=== PATIENT | female | born 1930 | race Caucasian/White ===

== ENCOUNTER 2017-07-27 16:18 | Observation (INO) | payer MEDICARE ==
[~2017-07-27] VITALS: Ht 167.6 cm; Wt 72.2 kg
[2017-07-27] MEDS ORDERED: LISINOPRIL 5 MG TABLET ONE (16:48)
[2017-07-27] MEDS ORDERED: NITROGLYCERIN 1GM/1 INCH PACKET TD ONE (16:49)
[2017-07-27] MEDS ORDERED: METOPROLOL TARTRATE 25 MG TAB ONE (16:50)
[2017-07-27] MEDS ORDERED: ONDANSETRON HCL 4 MG/2 ML VIAL ONE (16:50)
[2017-07-27 16:51] LABS: BASOPHILS % (AUTO) 0.5 % (0.0-5.0); HEMATOCRIT 41.7 % (36-48); LYMPHOCYTES % (AUTO) 30.6 % (21.0-51.0); MEAN CORPUSCULAR HEMOGLOBIN 29.6 pg (27.0-33.0); MEAN CORPUSCULAR HGB CONC 33.7 g/dL (32.0-36.0); MEAN CORPUSCULAR VOLUME 87.8 fL (79-99); MONOCYTES % (AUTO) 7.6 % (3.0-13.0); NEUTROPHILS % (AUTO) 60.3 % (40.0-77.0); PLATELET COUNT (AUTO) 221 K/uL (130-400); RED BLOOD CELL COUNT(AUTO) 4.75 MIL/uL (4.00-5.50); WHITE BLOOD COUNT (AUTO) 8.5 K/uL (4.8-10.8)
[2017-07-27 17:02] LABS: CREATININE 0.9 mg/dL (0.5-1.5); POTASSIUM 3.8 mmol/L (3.5-5.1)
[2017-07-27 17:17] LABS: CREATINE KINASE MB 1.1 ng/mL (0.5-3.6)
[2017-07-28] VITALS (7 sets, daily range): BP systolic 116–146; BP diastolic 59–73
[2017-07-28] MEDS ORDERED: INSLAN SQ (05:14)
[2017-07-28] MEDS ORDERED: NITROGLYCERIN 0.4 MG SL TAB SL ONE (05:49)
[2017-07-28 05:52] LABS: HEMATOCRIT 37.8 % (36-48); MEAN CORPUSCULAR HEMOGLOBIN 29.9 pg (27.0-33.0); MEAN CORPUSCULAR HGB CONC 34.2 g/dL (32.0-36.0); MEAN CORPUSCULAR VOLUME 87.5 fL (79-99); PLATELET COUNT (AUTO) 209 K/uL (130-400); RED BLOOD CELL COUNT(AUTO) 4.32 MIL/uL (4.00-5.50); RED CELL DISTRIBUTION WIDTH 13.9 % (11.0-15.5); WHITE BLOOD COUNT (AUTO) 7.4 K/uL (4.8-10.8)
[2017-07-28] MEDS: NITROGLYCERIN 1GM/1 INCH PACKET TD SCH ×3 (05:52→21:03)
[2017-07-28 05:54] LABS: BAND NEUTROPHILS % (MANUAL) 2 % (0-2); LYMPHOCYTES % (MANUAL) 42 % (22-44); MAN.DIFF COMMENT-IMPRESSION MANUAL DIFFERENTIAL; MONOCYTES % (MANUAL) 4 % (2-9); PLATELET MORPHOLOGY COMMENT ADEQUATE; SEGMENTED NEUTROPHILS % 52 % (40-70)
[2017-07-28 06:02] LABS: MAGNESIUM 1.9 mg/dL (1.80-2.40); POTASSIUM 3.7 mmol/L (3.5-5.1)
[2017-07-28] MEDS ORDERED: GLUCAGON 1MG KIT 1 MG ML IM PRN (06:30)
[2017-07-28] MEDS ORDERED: DEXTROSE 50%-WATER 50 ML DISP.SYRIN IV PRN (06:30)
[2017-07-28] MEDS ORDERED: ACETAMINOPHEN 325 MG TAB PO PRN (06:30)
[2017-07-28] MEDS: METOPROLOL TARTRATE 25 MG TAB PO SCH ×2 (08:24→20:57)
[2017-07-28] MEDS: ASPIRIN 325MG EC TAB 325 MG TABLET.DR PO SCH (08:24)
[2017-07-28] MEDS: LISINOPRIL 20 MG TABLET PO SCH (08:25)
[2017-07-28] MEDS ORDERED: REGADENOSON 0.4 MG/5 ML PF SYG IVP SCH (08:30)
[2017-07-28 09:12] LABS: CREATINE KINASE MB 0.8 ng/mL (0.5-3.6); CREATINE KINASE, TOTAL 40 U/L (21-232); MYOGLOBIN 63 ng/mL (10-92); TROPONIN I < 0.04 ng/mL (0.00-0.06)
[2017-07-28] MEDS ORDERED: DIATR MEGLU/DIATRIZOATE SODIUM 30 ML BOTTLE PO ONE (14:51)
[2017-07-28] MEDS ORDERED: IOPAMIDOL-370 100 ML VIAL IV ONE (14:51)
[2017-07-28] MEDS ORDERED: ATORVASTATIN CALCIUM 20 MG TABLET PO SCH (21:00)
[2017-07-29 03:25] VITALS: BP_SYST 130; BP_SYST 140; BP_DIAS 66; BP_DIAS 70
[2017-07-29 03:30] VITALS: BP 130/66
[2017-07-29] MEDS: NITROGLYCERIN 1GM/1 INCH PACKET TD SCH (05:17)
[2017-07-29 07:48] VITALS: BP 149/75
[2017-07-29] MEDS: ASPIRIN 325MG EC TAB 325 MG TABLET.DR PO SCH (08:22)
[2017-07-29] MEDS: LISINOPRIL 20 MG TABLET PO SCH (08:32)
[2017-07-29] MEDS: METOPROLOL TARTRATE 25 MG TAB PO SCH (08:32)
[2017-07-29 11:38] VITALS: BP 137/61
== END 2017-07-29 13:00 | disposition home or self-care (01) ==
LOC: EDH 16:18 → EDHIP 16:19 → 2DH 07-28 03:54
PROVIDERS: ADMIT Family Medicine; ATTEND Family Medicine
DX: R07.89 Other chest pain (principal); R06.02 Shortness of breath; E11.9 Type 2 diabetes mellitus without complications; I10 Essential (primary) hypertension; Z79.82 Long term (current) use of aspirin; Z79.899 Other long term (current) drug therapy; R91.1 Solitary pulmonary nodule; R20.0 Anesthesia of skin
CPT/HCPCS: 36415 ×2; 71270; 74178; 78452; 80048 ×2; 80061; 82550 ×2; 82553 ×2; 82948 ×6; 83735; 83874; 84484 ×3; 85025 ×2; 93005 ×2; 93017; 93306; 99285; A9500 ×2; G0378 ×45; J2405; J2785; Q9963; Q9967; 96374